=== PATIENT | male | born 1950 | race African-American/Black ===

== ENCOUNTER 2021-06-26 14:28 | Inpatient (IN) | payer OTHER ==
[~2021-06-26] VITALS: Ht 167.6 cm; Wt 62.0 kg
[2021-06-26] VITALS (7 sets, daily range): BP systolic 118–151; BP diastolic 73–86
--- NOTE | 2021-06-26 15:13 | PHYS DOC ---
Past Medical History Past Medical History: Hypertension Past Surgical History: Other Additional Past Surgical Histo: bowel perf. General Adult EDM: Chief Complaint: ABNORMAL LABS HPI: HPI: Patient is a 71 year old male who was told by his physician to come to the ER due to anemia. Patient said he not been feeling well the last few weeks, feeling weaker than normal, having trouble breathing with exertion. Patient called his physician at the [facility], they saw him yesterday, had some basic lab work done, they come today asking to go to the hospital because his hemoglobin level was low. Patient denies any blood in his stool, denies any coughing up blood, denies any rectal bleeding. Patient denies any chest pain, no abdominal pain, n o nausea vomiting. Patient is not on any blood thinner. Review of Systems: Review of Systems: Constitutional: Denies fever or chills. [] Eyes: Denies change in visual acuity. [] HENT: Denies nasal congestion or sore throat. [] Respiratory: Denies cough or shortness of breath. [] Cardiovascular: Denies chest pain or edema. [] GI: Denies abdominal pain, nausea, vomiting, bloody stools or diarrhea. [] : Denies dysuria. [] Musculoskeletal: Denies back pain or joint pain. [] Integument: Denies rash. [] Neurologic: Denies headache, focal weakness or sensory changes. Positive for generalized weakness Endocrine: Denies polyuria or polydipsia. [] Lymphatic: Denies swollen glands. [] Psychiatric: Denies depression or anxiety. [] Heart Score: C/O Chest Pain: N/A Risk Factors: Risk Factors: DM, Current or recent (<one month) smoker, HTN, HLP, family history of CAD, obesity. Risk Scores: Score 0 - 3: 2.5% MACE over next 6 weeks - Discharge Home Score 4 - 6: 20.3% MACE over next 6 weeks - Admit for Clinical Observation Score 7 - 10: 72.7% MACE over next 6 weeks - Early Invasive Strategies Physical Exam: PE: Constitutional: Well developed, well nourished, no acute distress, non-toxic meche earance. [] HENT: Normocephalic, atraumatic, bilateral external ears normal, oropharynx moist, no oral exudates, nose normal. [] Eyes: PERRLA, EOMI, pale conjunctival bilateral, no discharge. [] Neck: Normal range of motion, no tenderness, supple, no stridor. [] Cardiovascular:Heart rate regular rhythm, no murmur [] Lungs & Thorax: Bilateral breath sounds clear to auscultation [] Abdomen: Bowel sounds normal, soft, no tenderness, no masses, no pulsatile masses. [] Skin: Warm, dry, no erythema, no rash. [] Back: No tenderness, no CVA tenderness. [] Extremities: No tenderness, no cyanosis, no clubbing, ROM intact, no edema. [] Neurologic: Alert and oriented X 3, normal motor function, normal sensory function, no focal deficits noted. [] Psychologic: Affect normal, judgement normal, mood normal. [] Current Patient Data: Labs: Laboratory Tests Test 06/26/21 15:30 White Blood Count 4.3 x10^3/uL Red Blood Count 2.80 x10^6/uL Hemoglobin 5.2 g/dL Hematocrit 18.3 % Mean Corpuscular Volume 66 fL Mean Corpuscular Hemoglobin 19 pg Mean Corpuscular Hemoglobin Concent 29 g/dL Red Cell Distribution Width 23.0 % Platelet Count 92 x10^3/uL Neutrophils (%) (Auto) 56 % Lymphocytes (%) (Auto) 30 % Monocytes (%) (Auto) 12 % Eosinophils (%) (Auto) 2 % Basophils (%) (Auto) 0 % Neutrophils # (Auto) 2.4 x10^3/uL Lymphocytes # (Auto) 1.3 x10^3/uL Monocytes # (Auto) 0.5 x10^3/uL Eosinophils # (Auto) 0.1 x10^3/uL Basophils # (Auto) 0.0 x10^3/uL Platelet Estimate Decreased Large Platelets Present Hypochromasia Mod Anisocytosis Slight Microcytosis Mod Sodium Level 136 mmol/L Potassium Level 3.8 mmol/L Chloride Level 100 mmol/L Carbon Dioxide Level 27 mmol/L Anion Gap 9 Blood Urea Nitrogen 8 mg/dL Creatinine 0.9 mg/dL Estimated GFR (Cockcroft-Gault) 101.2 BUN/Creatinine Ratio 9 Glucose Level 104 mg/dL Calcium Level 8.9 mg/dL Magnesium Level 1.7 mg/dL Total Bilirubin 0.8 mg/dL Aspartate Amino Transf (AST/SGOT) 36 U/L Alanine Aminotransferase (ALT/SGPT) 23 U/L Alkaline Phosphatase 85 U/L Total Protein 8.0 g/dL Albumin 3.5 g/dL Albumin/Globulin Ratio 0.8 Vital Signs: Vital Signs Date Time Temp Pulse Resp B/P (MAP) Pulse Ox O2 Delivery O2 Flow Rate FiO2 06/26/21 14:40 98.5 93 18 125/61 (82) 98 Room Air 98.5 EKG: EKG: [] Radiology/Procedures: Radiology/Procedures: [] Course & Med Decision Making: Course & Med Decision Making Pertinent Labs and Imaging studies reviewed. (See chart for details) Patient is a 71-year-old male who present to ER due to general weakness, exertional dyspnea, patient was found to be anemic. Patient had no active rectal bleeding, patient be admitted to hospital for further evaluation and odilia atment. Discussed with the hospitalist on-call Dr. Zheng Lipscomb who agreed to admit the patient. Michele Disclaimer: Michele Disclaimer: This electronic medical record was generated, in whole or in part, using a voice recognition dictation system. Departure Departure Impression: Primary Impression: Anemia Disposition: ADMITTED INPATIENT Admitting Physician: HILARY (Dr. Lipscomb) Condition: STABLE Referrals: NO PCP (PCP) CHET MCCLOUD DO Jun 26, 2021 15:12
[2021-06-26 15:42] LABS: BASO % 0 % (0-3); EOS # 0.1 x10^3/uL (0.0-0.7); EOS % 2 % (0-3); HEMATOCRIT 18.3 % (39.0-53.0); LYMPH # 1.3 x10^3/uL (1.0-4.8); LYMPH % 30 % (24-48); MEAN CORPUSCULAR HEMOGLOBIN 19 pg (25-35); MEAN CORPUSCULAR HGB CONC 29 g/dL (31-37); MEAN CORPUSCULAR VOLUME 66 fL (79-100); MONO # 0.5 x10^3/uL (0.0-1.1); MONO % 12 % (0-9); NEUT # 2.4 x10^3/uL (1.8-7.7); NEUT % 56 % (31-73); PLATELET COUNT 92 x10^3/uL (140-400); WHITE BLOOD COUNT 4.3 x10^3/uL (4.0-11.0)
[2021-06-26 15:51] LABS: CALCIUM 8.9 mg/dL (8.5-10.1); CREATININE 0.9 mg/dL (0.7-1.3); GFR 101.2; POTASSIUM 3.8 mmol/L (3.5-5.1)
[2021-06-26 16:03] LABS: ALBUMIN 3.5 g/dL (3.4-5.0); ALBUMIN/GLOBULIN RATIO 0.8 (1.0-1.7); MAGNESIUM 1.7 mg/dL (1.8-2.4); TOTAL BILIRUBIN 0.8 mg/dL (0.2-1.0)
[2021-06-26 16:22] LABS: HEMOGLOBIN 5.2 g/dL (13.0-17.5)
[2021-06-26 16:23] LABS: HYPOCHROMIA MOD; PLT ESTIMATE DECREASED (ADEQUATE)
[2021-06-26 16:24] LABS: ANISOCYTOSIS SLIGHT; MICROCYTOSIS MOD
[2021-06-26] MEDS ORDERED: TRAZ-118 PO (20:38)
[2021-06-26] MEDS ORDERED: VIT1TABL PO (21:50)
[2021-06-26] MEDS ORDERED: CHOL2400 MC (21:50)
[2021-06-26] MEDS ORDERED: AMLO-187 PO (21:50)
[2021-06-26] MEDS ORDERED: DULO20CA PO (21:50)
--- NOTE | 2021-06-26 23:31 | PDOC1 ---
History and Physical Date of Service: DOS: DATE: 06/26/21 TIME: 23:31 Chief Complaint: Chief Complain: anemia History of Present Illness: HPI: Patient is a 71 year old male who was told by his physician to come to the ER due to anemia. Patient said he not been feeling well the last few weeks, feeling weaker than normal, having trouble breathing with exertion. Patient called his physician at the [facility], they saw him yesterday, had some basic lab work done, they come today asking to go to the hospital because his hemoglobin level was low. Patient denies any blood in his stool, denies any coughing up blood, denies any rectal bleeding. Patient denies any chest pain, no abdominal pain, no nausea vomiting. Patient is not on any blood thinner. Past Medical/Surgical History: PMH/PSH: HTN Allergies: Allergies: Coded Allergies: No Known Drug Allergies (Unverified , 06/26/21) Family History: Family History: HTN Social History: Social History: denies alcohol tobacco drug use Current Medications: Current Medications Active Scripts Active Reported B Complex With Vitamin C Tab (Vit B1 Mn/B2/B3/B5/B6/B12/C/Fa) 1 Each Tablet 1 Each PO DAILY Vitamin D3 (Cholecalciferol (Vitamin D3)) 2,400 Unit/1 Ml Liquid 2,400 Unit MC DAILY Amlodipine Besylate 10 Mg Tablet 10 Mg PO DAILY Cymbalta (Duloxetine Hcl) 20 Mg Capsule.dr 20 Mg PO DAILY Trazodone Hcl 50 Mg Tablet 50 Mg PO HS ROS: Review of Systems Review of System Unless noted in HPI 14 point review of systems was negative Physical Exam: Vital Signs: Vital Signs Date Time Temp Pulse Resp B/P (MAP) Pulse Ox O2 Delivery O2 Flow Rate FiO2 06/26/21 20:56 97.4 85 20 118/76 97.4 06/26/21 19:37 96 Room Air Physcial Exam: GEN: No apparent distress. Alert and oriented HEENT: Normal cephalic, atraumatic, external auditory canals are patent EYES: Extraocular muscles are intact, pupil are equally round and reactive to light and accommodation MUSCULOSKELETAL: Well developed , well nourished, good range of motion ENDOCRINE: No thyromegaly was palpated LYMPHATICS: No cervical chain or axillary nodes were noted HEMATOPOIETIC: No bruising NECK: Supple, no JVD, no thyromegaly was noted LUNGS: Clear to auscultation in all lung veloz without rhonchi or wheezing HEART: RRR, S!, S2 present. Peripheral pulses intact, no obvious murmurs noted ABDOMEN: Soft, nontender. Positive bowel sounds, no organomegaly, normal bowel sounds EXTREMITIES: Without clubbing, cyanosis, or edema. Pedal pulses intact. Negative Homans sign NEUROLOGIC: Normal speech and tone. A&O x 3, moves all extremities, no obvious focal deficits PSYCHIATRIC: Normal affect, normal mood. Stable SKIN: No ulcerations or rashes, good skin turgor, no jaundice VASCULAR: Good capillary refill, neurovascular bundle appears to be intact Labs: Labs: Laboratory Tests Test 06/26/21 15:30 White Blood Count 4.3 x10^3/uL (4.0-11.0) Red Blood Count 2.80 x10^6/uL (4.30-5.70) Hemoglobin 5.2 g/dL (13.0-17.5) Hematocrit 18.3 % (39.0-53.0) Mean Corpuscular Volume 66 fL (79-100) Mean Corpuscular Hemoglobin 19 pg (25-35) Mean Corpuscular Hemoglobin Concent 29 g/dL (31-37) Red Cell Distribution Width 23.0 % (11.5-14.5) Platelet Count 92 x10^3/uL (140-400) Neutrophils (%) (Auto) 56 % (31-73) Lymphocytes (%) (Auto) 30 % (24-48) Monocytes (%) (Auto) 12 % (0-9) Eosinophils (%) (Auto) 2 % (0-3) Basophils (%) (Auto) 0 % (0-3) Neutrophils # (Auto) 2.4 x10^3/uL (1.8-7.7) Lymphocytes # (Auto) 1.3 x10^3/uL (1.0-4.8) Monocytes # (Auto) 0.5 x10^3/uL (0.0-1.1) Eosinophils # (Auto) 0.1 x10^3/uL (0.0-0.7) Basophils # (Auto) 0.0 x10^3/uL (0.0-0.2) Platelet Estimate Decreased (ADEQUATE) Large Platelets Present Hypochromasia Mod Anisocytosis Slight Microcytosis Mod Sodium Level 136 mmol/L (136-145) Potassium Level 3.8 mmol/L (3.5-5.1) Chloride Level 100 mmol/L (98-107) Carbon Dioxide Level 27 mmol/L (21-32) Anion Gap 9 (6-14) Blood Urea Nitrogen 8 mg/dL (8-26) Creatinine 0.9 mg/dL (0.7-1.3) Estimated GFR (Cockcroft-Gault) 101.2 BUN/Creatinine Ratio 9 (6-20) Glucose Level 104 mg/dL (70-99) Calcium Level 8.9 mg/dL (8.5-10.1) Magnesium Level 1.7 mg/dL (1.8-2.4) Iron Level 12 ug/dL (65-175) Total Iron Binding Capacity 443 ug/dL (250-450) Iron Saturation 3 % (15-34) Transferrin 378 mg/dL (177-329) Ferritin 9 ng/mL (26-388) Total Bilirubin 0.8 mg/dL (0.2-1.0) Aspartate Amino Transf (AST/SGOT) 36 U/L (15-37) Alanine Aminotransferase (ALT/SGPT) 23 U/L (16-63) Alkaline Phosphatase 85 U/L (46-116) Total Protein 8.0 g/dL (6.4-8.2) Albumin 3.5 g/dL (3.4-5.0) Albumin/Globulin Ratio 0.8 (1.0-1.7) Laboratory Tests Test 06/26/21 15:30 White Blood Count 4.3 x10^3/uL (4.0-11.0) Red Blood Count 2.80 x10^6/uL (4.30-5.70) Hemoglobin 5.2 g/dL (13.0-17.5) Hematocrit 18.3 % (39.0-53.0) Mean Corpuscular Volume 66 fL (79-100) Mean Corpuscular Hemoglobin 19 pg (25-35) Mean Corpuscular Hemoglobin Concent 29 g/dL (31-37) Red Cell Distribution Width 23.0 % (11.5-14.5) Platelet Count 92 x10^3/uL (140-400) Neutrophils (%) (Auto) 56 % (31-73) Lymphocytes (%) (Auto) 30 % (24-48) Monocytes (%) (Auto) 12 % (0-9) Eosinophils (%) (Auto) 2 % (0-3) Basophils (%) (Auto) 0 % (0-3) Neutrophils # (Auto) 2.4 x10^3/uL (1.8-7.7) Lymphocytes # (Auto) 1.3 x10^3/uL (1.0-4.8) Monocytes # (Auto) 0.5 x10^3/uL (0.0-1.1) Eosinophils # (Auto) 0.1 x10^3/uL (0.0-0.7) Basophils # (Auto) 0.0 x10^3/uL (0.0-0.2) Platelet Estimate Decreased (ADEQUATE) Large Platelets Present Hypochromasia Mod Anisocytosis Slight Microcytosis Mod Sodium Level 136 mmol/L (136-145) Potassium Level 3.8 mmol/L (3.5-5.1) Chloride Level 100 mmol/L (98-107) Carbon Dioxide Level 27 mmol/L (21-32) Anion Gap 9 (6-14) Blood Urea Nitrogen 8 mg/dL (8-26) Creatinine 0.9 mg/dL (0.7-1.3) Estimated GFR (Cockcroft-Gault) 101.2 BUN/Creatinine Ratio 9 (6-20) Glucose Level 104 mg/dL (70-99) Calcium Level 8.9 mg/dL (8.5-10.1) Magnesium Level 1.7 mg/dL (1.8-2.4) Iron Level 12 ug/dL (65-175) Total Iron Binding Capacity 443 ug/dL (250-450) Iron Saturation 3 % (15-34) Transferrin 378 mg/dL (177-329) Ferritin 9 ng/mL (26-388) Total Bilirubin 0.8 mg/dL (0.2-1.0) Aspartate Amino Transf (AST/SGOT) 36 U/L (15-37) Alanine Aminotransferase (ALT/SGPT) 23 U/L (16-63) Alkaline Phosphatase 85 U/L (46-116) Total Protein 8.0 g/dL (6.4-8.2) Albumin 3.5 g/dL (3.4-5.0) Albumin/Globulin Ratio 0.8 (1.0-1.7) Assessment/Plan Assessment/Plan Microcytic anemia -Admit to hospitalist. Transfuse 2 units of blood. Recheck hemoglobin -Oral iron and iron infusion started will prescribe iron outpatient. -Can follow-up at the [facility] for further work-up -Closely monitor. Justifications for Admission Other Justification ADAM ALVAREZ MD Jun 26, 2021 23:31
[2021-06-26 23:35] LABS: HEMATOCRIT 23.1 % (39.0-53.0); RED BLOOD COUNT 3.37 x10^6/uL (4.30-5.70); WHITE BLOOD COUNT 4.7 x10^3/uL (4.0-11.0)
[2021-06-26 23:39] LABS: HEMOGLOBIN 6.9 g/dL (13.0-17.5)
[2021-06-26] MEDS ORDERED: ONDANSETRON PF 4 MG/2 ML VIAL. IVP PRN (23:45)
[2021-06-26] MEDS ORDERED: MORPHINE SULFATE 2 MG/ML INJ. IV PRN ×2 (23:45)
[2021-06-26] MEDS ORDERED: ACETAMINOPHEN 325 MG TABLET. PO PRN (23:45)
[2021-06-26] MEDS ORDERED: CALCIUM CARBONATE 500 MG TAB.CHEW PO PRN (23:45)
[2021-06-26] MEDS ORDERED: ELECTROLYTE (NON-ICU) PROTOCOL. MC PRN (23:45)
[2021-06-27] VITALS (7 sets, daily range): BP systolic 116–166; BP diastolic 75–86
[2021-06-27] MEDS ORDERED: traZODone 50 MG TABLET. PO SCH
--- NOTE | 2021-06-27 06:17 | NUR ---
Patient transferred from room 203 to room 434 per wheelchair. Patient alert and oriented x 4. Patient oriented to room, bed, phone, call light and POC. Patient verbalized understanding. Patient denies any c/o. Call light in reach, will monitor.
[2021-06-27] MEDS ORDERED: FERROUS SULFATE ORAL 300 MG/5 ML SOLUTION. PO SCH (08:00)
[2021-06-27] MEDS ORDERED: CHOLECALCIFEROL (VITAMIN D3) 1,000 UNIT TABLET PO SCH (09:00)
[2021-06-27] MEDS ORDERED: DULoxetine HCL 20 MG CAPSULE.DR PO SCH (09:00)
[2021-06-27] MEDS ORDERED: VITAMIN B COMPLEX TABLET. PO SCH (09:00)
[2021-06-27 11:27] LABS: HEMATOCRIT 29.2 % (39.0-53.0); HEMOGLOBIN 8.8 g/dL (13.0-17.5); RED BLOOD COUNT 4.17 x10^6/uL (4.30-5.70); RED CELL DISTRIBUTION WIDTH 26.3 % (11.5-14.5); WHITE BLOOD COUNT 4.7 x10^3/uL (4.0-11.0)
[2021-06-27] MEDS ORDERED: IRON SUCROSE COMPLEX 400 MG in IV NORMAL SALINE 250ML 250 ML IV ONE (12:00)
[2021-06-27] MEDS ORDERED: FERR300L PO (12:17)
--- NOTE | 2021-06-27 17:38 | NUR ---
Discharge Note: LOLLY RAO Discharge instructions and discharge home medications reviewed with Patient and a copy given. All questions have been answered and understanding verbalized.
--- NOTE | 2021-06-29 16:38 | PDOC3 ---
[facility]-Discharge Summary Date of Admission: Date of Admission: Jun 26, 2021 Date of Discharge: Date of Discharge: Jun 27, 2021 Admission Diagnosis: Admitting Diagnosis: anemia Hospital Course: Hospital Course: HPI: Patient is a 71 year old male who was told by his physician to come to the ER due to anemia. Patient said he not been feeling well the last few weeks, feeling weaker than normal, having trouble breathing with exertion. Patient called his physician at the [facility], they saw him yesterday, had some basic lab work done, they come today asking to go to the hospital because his hemoglobin level was low. Patient denies any blood in his stool, denies any coughing up blood, denies any rectal bleeding. Patient denies any chest pain, no abdominal pain, no nausea vomiting. Patient is not on any blood thinner. 06/27 Evaluated examined at bedside. Hemoglobin improved. Did well with iron. Will prescribe oral iron outpatient. Follow-up with your PCP. 30 minutes spent on discharge. 18 minutes advance care planning. Disposition: Disposition/Orders: D/C to Home Activity: Activity: Resume previous activity Diet: Diet: Regular Medications: Home Meds Active Scripts Ferrous Sulfate (FERROUS SULFATE) 300 Mg/5 Ml Liquid, 300 MG PO BIDWMEALS for jennifer for 30 Days, #300 ML Prov:ADAM ALVAREZ MD 06/27/21 Reported Medications Vit B1 Mn/B2/B3/B5/B6/B12/C/Fa (B COMPLEX WITH VITAMIN C TAB) 1 Each Tablet, 1 EACH PO DAILY for supplement, TAB 06/26/21 Cholecalciferol (Vitamin D3) (VITAMIN D3) 2,400 Unit/1 Ml Liquid, 2400 UNIT MC DAILY for supplement, LIQUID 06/26/21 Amlodipine Besylate (AMLODIPINE BESYLATE) 10 Mg Tablet, 10 MG PO DAILY for HTN, TAB 06/26/21 Duloxetine Hcl (CYMBALTA) 20 Mg Capsule.dr, 20 MG PO DAILY for depression, CAP 06/26/21 Trazodone Hcl (TRAZODONE HCL) 50 Mg Tablet, 50 MG PO HS for insomnia, TAB 06/26/21 Scheduled Amlodipine Besylate (Amlodipine Besylate), 10 MG PO DAILY, (Reported) Cholecalciferol (Vitamin D3) (Vitamin D3), 2,400 UNIT MC DAILY, (Reported) Duloxetine Hcl (Cymbalta), 20 MG PO DAILY, (Reported) Ferrous Sulfate (Ferrous Sulfate), 300 MG PO BIDWMEALS Trazodone Hcl (Trazodone Hcl), 50 MG PO HS, (Reported) Vit B1 Mn/B2/B3/B5/B6/B12/C/Fa (B Complex With Vitamin C Tab), 1 EACH PO DAILY, (Reported) Justicifation of Admission Dx: Justifications for Admission: Justification of Admission Dx: Yes (anemia) ADAM ALVAREZ MD Jun 29, 2021 16:38
== END 2021-06-27 17:39 | disposition home or self-care (01) | DRG 812 ==
LOC: ER 14:28 → 2 NORTH 16:40 → 4 NORTH 06-27 06:01
PROVIDERS: ADMIT Student in an Organized Health Care Education/Training Program; ATTEND Student in an Organized Health Care Education/Training Program
PROC: 30233N1 Transfusion of Nonautologous Red Blood Cells into Peripheral Vein, Percutaneous Approach (ICD-10-PCS; principal; 2021-06-26)
DX: D50.9 Iron deficiency anemia, unspecified (principal); I10 Essential (primary) hypertension; Z82.49 Family history of ischemic heart disease and other diseases of the circulatory system; F32.A Depression, unspecified; G47.00 Insomnia, unspecified
CPT/HCPCS: 36415; 36430; 80053; 82728; 83540; 83550; 83735; 84466; 85025; 85027; 86850; 86900; 86901; 86920; J1756; J7050; P9016; 99285-25; G0378; J7030